=== PATIENT | male | born 1990 | race Caucasian/White ===

== ENCOUNTER 2023-02-11 20:32 | Emergency (ER) | payer MEDICAID, SELFPAY ==
[2023-02-11 21:21] VITALS: BP 124/108; PULSE 107; RESP 18; TEMP 37.1; O2SAT 100; BMI 21.3
[2023-02-11 21:54] LABS: Basophils Absolute Auto 0.1 X10*3/uL (0.0-0.2); Basophils Percent Auto 0.3 % (0-2); Eosinophils Percent Auto 0.2 % (0-4); Hematocrit 45.7 % (42.0-52.0); Hemoglobin 15.8 g/dl (14.0-18.0); Imm Gran Pct Auto 0.5 % (0.0-0.4); Lymphocytes Absolute Auto 0.6 X10*3/uL (1.2-4.9); MANUAL DIFF FLAG SCAN; Mean Corpuscular HGB Conc 34.6 g/dl (31.0-36.0); Mean Corpuscular Hemoglobin 30.4 pg (27.0-33.0); Mean Corpuscular Volume 87.9 fL (80.0-98.0); Mean Platelet Volume 10.5 fL (9.4-12.4); Monocytes Absolute Auto 0.9 X10*3/uL (0.1-1.2); Monocytes Percent Auto 4.5 % (2-11); Neutrophils Absolute Auto 18.2 x10*3/uL (2.0-8.3); Neutrophils Percent Auto 91.5 % (45-73); Platelet Count 344 X10*3/uL (160-400); Red Cell Distribution Width 12.9 % (11.0-16.0); SCAN SMEAR FLAG 1; White Blood Count 19.8 X10*3/uL (4.8-10.8)
[2023-02-11 22:11] LABS: Alanine Aminotransferase 21 U/L (0-40); Alkaline Phosphatase 67 U/L (39-117); Anion Gap 18 (12-20); Aspartate Amino Transferase 21 U/L (5-37); Bilirubin Total 1.7 mg/dL (0.0-1.0); Blood Urea Nitrogen 12 mg/dL (9-16); Calcium 9.8 mg/dL (8.4-10.2); Carbon Dioxide 21 mmol/L (22-29); Chloride 107 mmol/L (96-108); Creatinine Clr Calc Pharmacy 96.2; Estimated Glomerular Filt Rate > 60; Glucose Random 128 mg/dL (60-115); Potassium 3.3 mmol/L (3.3-5.1); Sodium 143 mmol/L (135-145); Total Protein 8.3 g/dL (6.5-8.0)
[2023-02-11 22:14] LABS: SLIDE REVIEW VERIFIED
[2023-02-11 22:36] LABS: Influenza A PCR NEGATIVE (Negative); Influenza B PCR NEGATIVE (Negative); Resp Syncy Virus RNA Qual PCR NEGATIVE (Negative); SARS COV2 PCR INHOUSE NEGATIVE (Negative)
[2023-02-12 00:02] VITALS: BP 134/81; PULSE 106; RESP 16; TEMP 36.5; O2SAT 100
--- NOTE | 2023-02-12 00:47 | ED.NAVMDI ---
HPI - Nausea/Vomiting/Diarrhea General Chief complaint: Nausea/Vomiting/Diarrhea Stated complaint: abd pain, vomiting, diarrhea Time Seen by Provider: 02/12/23 00:37 Source: patient and family (Mother) Mode of arrival: ambulatory Limitations: no limitations History of Present Illness HPI Narrative: 32-year-old male who presents emergency department for evaluation of nausea, vomiting, diarrhea, numbness of upper extremities with spasm of her extremities. Patient's symptoms began at around 10:00 hours. Patient states that he developed nausea and vomited multiple times. He states that he also had multiple episodes of diarrhea. Did not notice any blood in the emesis or the diarrhea. He is complaining of epigastric pain, he states that it is a constant, sharp pain which is 8/10 at its worst. According to his mother, the patient appeared to have difficulty breathing, he was tremulous, he complained of numbness in his hands and face and spasm of his upper extremities. These symptoms have resolved. Related Data Previous Rx's Medication Instructions Recorded ondansetron 4 mg disintegrating 4 mg PO Q6-8H PRN nausea and 02/12/23 tablet vomiting #14 tabs Allergies Allergy/AdvReac Type Severity Reaction Status Date / Time No Known Allergies Allergy Verified 02/11/23 21:24 Review of Systems Review of Systems: Yes all other systems are reviewed and are negative [facility] Past Medical History [facility] Narrative: Past medical history: None. Social history: He denies tobacco and alcohol use. He does smoke marijuana 2-3 times per day. Social History Social History Smoked in Last 30 Days: No Substance Use Type: Marijuana Advance Directives: No Advance Directives Information Provided: No Physical Exam Vital Signs: Vital Signs: Last Vital Signs Temp 98.8 F 02/12/23 02:50 Pulse 108 H 02/12/23 02:50 Resp 16 02/12/23 02:50 BP 108/58 L 02/12/23 02:50 Pulse Ox 99 02/12/23 02:50 O2 Del Method Room Air 02/12/23 02:50 BMI result Body Mass Index 21.3 Vital signs revealed an elevated pulse of 106 otherwise unremarkable Exam: General: Awake, appears anxious and tremulous EENT: PERRL, Lids normal, sclera normal, conjunctiva normal, nose normal , ears normal, throat without erythema or exudates Neck: Supple, no adenopathy, no trachea midline or C-spine tenderness Lung: breath sounds symmetric, no wheezing, rales or rhonchi Chest: symmetric movement, nontender Heart: regular rate and rhythm, normal S1, S2 no murmurs or rubs Abdomen: soft, moderate epigastric tenderness, nondistended, normal bowel sounds Back: no vertebral tenderness, no CVAT Extremities: no deformities, moves all extremities symmetrically Skin: no rashes, no lesion, normal color and warmth Neuro: Awake, alert, oriented, normal speech, cranial nerves intact, moves all extremities symmetrically Psych: Pleasant, cooperative Medications Administered Discontinued Medications Generic Name Dose Route Start Last Admin Trade Name Freq PRN Reason Stop Dose Admin Sodium Chloride 1,000 mls @ 999 mls/hr 02/12/23 00:46 02/12/23 01:57 Ns IV 02/12/23 01:46 Infused .Q1H1M STA Infusion Ketorolac Tromethamine 15 mg 02/12/23 00:45 02/12/23 00:56 Ketorolac Tromethamine 15 Mg/Ml Vial IVPUSH 02/12/23 00:46 15 mg ONCE STA Administration Lorazepam 1 mg 02/12/23 00:45 02/12/23 00:57 Lorazepam 2 Mg/Ml Vial IVPUSH 02/12/23 00:46 1 mg STAT STA Administration Ondansetron HCl 4 mg 02/12/23 00:45 02/12/23 00:56 Ondansetron Hcl 4 Mg/2 Ml Vial IVPUSH 02/12/23 00:46 4 mg ONCE ONE Administration Medical Decision Making Medical Decision Making [facility] Narrative: 32-year-old male who presents emergency department for evaluation of nausea, vomiting and diarrhea which began at 10:00 hours . Patient also had a hyperventilation/anxiety attack with numbness of the upper extremities, carpal spasm, and shortness of breath which is resolved. Abdominal exam did reveal epigastric tenderness otherwise unremarkable. Following evaluation was ordered:CBC, CMP, urinalysis, COVID-19, influenza, RSV. Patient was treated with normal saline IV x1 L, lorazepam 1 mg IV, Toradol 50 mg IV and Zofran 4 mg IV 02:56 My interpretation patient's laboratory evaluation as follows: WBC elevated 19,800. H&H was normal. Bicarb was low at 21. Glucose was elevated 128. Total bilirubin is elevated 1.7. COVID-19, influenza and RSV were negative. Patient is feeling better after the above treatment. Patient most likely has a viral syndrome causing his nausea vomiting and diarrhea I did discuss this with him. I did tell him that smoking marijuana daily can also cause nausea vomiting and diarrhea as well. Patient will be discharged home with a prescription for Zofran ODT. Differential Diagnosis Differential Diagnoses: The differential diagnosis associated with the presentation includes Differential diagnosis includes was not limited to viral syndrome, food poisoning, cannabis hyperemesis syndrome, anxiety attack, hyperventilation syndrome, electrolyte abnormality, anemia, dehydration Admission/Observation Consideration of admission/observation: Escalation of care including admission/observation considered Lab Data 02/11/23 21:47 02/11/23 21:47 Labs: Lab Results 02/11/23 Range/Units 21:47 WBC 19.8 H (4.8-10.8) X10*3/uL RBC 5.20 (4.60-5.80) X10*6/uL Hgb 15.8 (14.0-18.0) g/dl Hct 45.7 (42.0-52.0) % MCV 87.9 (80.0-98.0) fL MCH 30.4 (27.0-33.0) pg MCHC 34.6 (31.0-36.0) g/dl RDW 12.9 (11.0-16.0) % Plt Count 344 (160-400) X10*3/uL MPV 10.5 (9.4-12.4) fL Immature Gran % (Auto) 0.5 H (0.0-0.4) % Neut % (Auto) 91.5 H (45-73) % Lymph % (Auto) 3.0 L (20-40) % [place] % (Auto) 4.5 (2-11) % Eos % (Auto) 0.2 (0-4) % Baso % (Auto) 0.3 (0-2) % Lymph # (Auto) 0.6 L (1.2-4.9) X10*3/uL [place] # (Auto) 0.9 (0.1-1.2) X10*3/uL Eos # (Auto) 0.0 (0.0-0.4) X10*3/uL Baso # (Auto) 0.1 (0.0-0.2) X10*3/uL Abs Immat Gran (auto) 0.10 H (0.00-0.03) X10*3/uL Absolute Neuts (auto) 18.2 H (2.0-8.3) x10*3/uL Absolute Nucleated RBC 0.000 (0.0-0.012) X10*3/uL Nucleated RBC % (auto) 0.0 (0.0-0.2) /100WBC Smear Tech's Comments VERIFIED Sodium 143 (135-145) mmol/L Potassium 3.3 (3.3-5.1) mmol/L Chloride 107 (96-108) mmol/L Carbon Dioxide 21 L (22-29) mmol/L Anion Gap 18 (12-20) BUN 12 (9-16) mg/dL Creatinine 0.84 (0.5-1.4) mg/dL Estim Creat Clear Calc 96.2 Estimated GFR > 60 Random Glucose 128 H (60-115) mg/dL Calcium 9.8 (8.4-10.2) mg/dL Total Bilirubin 1.7 H (0.0-1.0) mg/dL AST 21 (5-37) U/L ALT 21 (0-40) U/L Alkaline Phosphatase 67 (39-117) U/L Total Protein 8.3 H (6.5-8.0) g/dL Albumin 5.0 (3.5-5.0) g/dL Influenza Type A (PCR) NEGATIVE (Negative) Influenza Type B (PCR) NEGATIVE (Negative) RSV RNA Qual (PCR) NEGATIVE (Negative) SARS-CoV-2 RNA (RT-PCR) NEGATIVE (Negative) Discharge Plan Discharge Clinical Impression: Viral syndrome, Acute hyperventilation syndrome Vomiting Qualifiers: Vomiting type: unspecified Nausea presence: with nausea Qualified Code(s): R11.2 - Nausea with vomiting, unspecified Diarrhea Qualifiers: Diarrhea type: unspecified type Qualified Code(s): R19.7 - Diarrhea, unspecified Patient Disposition: Home, Self-Care Instructions: Hyperventilation (ED), Viral Syndrome (ED) Additional Instructions: Your blood work was normal. Your symptoms are most likely caused by a viral infection. Sometimes smoking marijuana daily can lead to nausea vomiting and diarrhea as well, you should consider cutting down on the amount of marijuana that you smoke. Take Zofran ODT 4 mg pills, 1 pill dissolved in your mouth every 8 hours as needed for nausea and vomiting. Follow-up with your doctor in 2 days. Please return to the emergency department if your symptoms get worse or if you develop any symptoms that are concerning to you. Prescriptions: New ondansetron 4 mg tablet,disintegrating 4 mg PO Q6-8H PRN (Reason: nausea and vomiting) Qty: 14 0RF
[2023-02-12] MEDS: ondansetron HCL 4 MG/2 ML VIAL IVPUSH (00:56)
[2023-02-12] MEDS: 0.9 % Sodium Chloride 1,000 ML 999 ML IV (00:56)
[2023-02-12] MEDS: Ketorolac Tromethamine 15 MG/ML VIAL IVPUSH (00:56)
[2023-02-12] MEDS: LORazepam 2 MG/ML VIAL 1 MG IVPUSH (00:57)
[2023-02-12 02:50] VITALS: BP 108/58; PULSE 108; RESP 16; TEMP 37.1; O2SAT 99
== END 2023-02-12 03:45 | disposition home or self-care (01) ==
PROVIDERS: Emergency Provider Emergency Medicine Emergency Medical Services
DX: B34.9 Viral infection, unspecified (principal); F45.8 Other somatoform disorders; R11.2 Nausea with vomiting, unspecified; R19.7 Diarrhea, unspecified; R10.13 Epigastric pain; Z20.822 Contact with and (suspected) exposure to COVID-19; Z20.828 Contact with and (suspected) exposure to other viral communicable diseases
CPT/HCPCS: 0241U; 80053; 85025; 96361; 96374; 96375; 99284; J1885; J2060; J2405